=== PATIENT | male | born 1980 | race African-American/Black ===

== ENCOUNTER 2022-10-05 19:36 | Emergency (ER) | payer BC ==
[2022-10-05 19:52] VITALS: BP 123/77; PULSE 86; RESP 19; TEMP 97.9; BMI 24.5
[2022-10-05] MEDS ORDERED: DIPHTH,PERTUSS(ACELL),TET 0.5 ML DISP.SYRIN IM ONE ×2 (20:01→20:04)
== END 2022-10-05 20:41 | disposition home or self-care (01) ==
LOC: JERFT 19:36
PROC: 0H9QXZZ Drainage of Finger Nail, External Approach (ICD-10-PCS; principal; 2022-10-05)
PROC: 3E0234Z Introduction of Serum, Toxoid and Vaccine into Muscle, Percutaneous Approach (ICD-10-PCS; 2022-10-05)
DX: S60.112A Contusion of left thumb with damage to nail, initial encounter (principal); W23.0XXA Caught, crushed, jammed, or pinched between moving objects, initial encounter
CPT/HCPCS: 73140-TC-RT-FY; 90715; 99283-25